=== PATIENT | female | born 2000 | race Two or more races ===

== ENCOUNTER → 2024-10-18 | Outpatient (CLI) | payer MEDICAID, SELFPAY ==
--- NOTE | 2024-10-18 14:23 | XR_ITS ---
Examination: PA lateral chest 2 views TECHNIQUE: Upright PA lateral chest 2 views Exam date and time: October 18, 2024 1428 hours Comparison January 29, 2024 FINDINGS: Mild prominence left ventricle No pneumonia or pulmonary edema Intact osseous structures IMPRESSION: Mild prominence left ventricle
== END | disposition home or self-care (01) ==
PROVIDERS: PCP Family Medicine; Referring Provider Family Medicine; Visit Provider Family Medicine
DX: I51.7 Cardiomegaly (principal)
CPT/HCPCS: 71046